=== PATIENT | male | born 1950 | race Caucasian/White ===

== ENCOUNTER 2025-01-06 11:23 | Observation (INO) | payer MEDICARE, BC ==
[2025-01-06 12:17] LABS: Basophils # (A) 0.03 10*3/uL (0.00-0.10); Basophils % (A) 0.5 %; Eosinophils # (A) 0.26 10*3/uL (0.04-0.35); Eosinophils % (A) 4.1 %; HCT 40.8 % (39.6-50.0); HGB 14.8 g/dL (13.0-17.0); Lymphocytes # (A) 1.36 10*3/uL (0.90-5.00); Lymphocytes % (A) 21.3 %; MCHC 36.3 g/dL (32.0-37.0); MCV 88.1 fL (80.0-97.0); Mean Platelet Volume 11.6 fL (9.5-12.2); Monocytes # (A) 0.63 10*3/uL (0.20-1.00); Monocytes % (A) 9.8 %; Neutrophils # (A) 4.09 10*3/uL (1.80-7.70); Neutrophils % (A) 63.8 %; Platelet Count 152 10*3/uL (140-440); RBC 4.63 10*6/uL (4.40-5.60); RDW 12.9 % (11.5-14.5)
[2025-01-06 12:31] LABS: Partial Thromboplastin Time 23.6 sec (22.0-30.0); Prothrombin Time 11.4 sec (10.0-12.5)
[2025-01-06 12:39] LABS: ALT 23 U/L (4-49); AST 24 U/L (17-59); African American GFR (CKD) >90 (>60 ml/min/1.73 sqM); Albumin 4.3 g/dL (3.5-5.0); Alkaline Phosphatase 57 U/L (38-126); Anion Gap 9 mmol/L; Blood Urea Nitrogen 11 mg/dL (9-20); Calcium 9.2 mg/dL (8.4-10.2); Carbon Dioxide 25 mmol/L (22-30); Chloride 107 mmol/L (98-107); Glucose 97 mg/dL (74-99); Magnesium 2.2 mg/dL (1.6-2.3); Non-African American GFR(CKD) 81 (>60 ml/min/1.73 sqM); Potassium 4.2 mmol/L (3.5-5.1); Sodium 141 mmol/L (137-145); Total Bilirubin 1.3 mg/dL (0.2-1.3); Total Protein 6.9 g/dL (6.3-8.2)
[2025-01-06 12:47] LABS: NT-Pro-B-Type Natriuretic Pept 90 pg/mL
--- NOTE | 2025-01-06 13:47 | XR ---
EXAMINATION TYPE: XR chest 2V DATE OF EXAM: 01/06/2025 12:57 PM COMPARISON: None CLINICAL INDICATION: Male, 74 years old with history of Chest Pain; TECHNIQUE: XR chest 2V Frontal and lateral views of the chest. FINDINGS: Lungs/Pleura: There is no evidence of pleural effusion, focal consolidation, or pneumothorax. Pulmonary vascularity: Unremarkable. Heart/mediastinum: Cardiomediastinal silhouette is unremarkable. Musculoskeletal: No acute osseous pathology. Left clavicle fixation hardware appears intact. Other findings: None IMPRESSION: No acute cardiopulmonary disease/process. [facility], , 01/06/2025 1:45 PM
[2025-01-06] MEDS ORDERED: NITROGLYCERIN SL TABS 0.4 MG TAB SUBLINGUAL PRN (14:44)
--- NOTE | 2025-01-06 14:44 | ED ---
Chest Pain HPI - General Chief Complaint: Chest Pain Stated Complaint: chest pain, SOB Time Seen by Provider: 01/06/25 11:40 Source: patient, RN notes reviewed Mode of arrival: ambulatory Limitations: no limitations - History of Present Illness Initial Comments: 74-year-old male presents emergency department complaint of chest pain. Patient states he had an episode on Sunday states he has had some on and off symptoms centralized chest left-sided chest. Patient has a history of hypertension states his blood pressure has been elevated. Patient has no prior cardiac stents denies any headache or dizziness he states pain radiates across his upper abdomen along the diaphragm and upper chest on the left. - Related Data Home Medications Medication Instructions Recorded Confirmed lisinopriL [Zestril] 20 mg PO DAILY 07/17/15 07/17/15 Allergies Allergy/AdvReac Type Severity Reaction Status Date / Time No Known Allergies Allergy Verified 01/06/25 11:30 Review of Systems ROS Statement: Those systems with pertinent positive or pertinent negative responses have been documented in the HPI. ROS Other: All systems not noted in ROS Statement are negative. EKG Findings - EKG Comments: EKG Findings:: EKG performed at 11: 43 sinus bradycardia rate of 59 VT 202 QRS 118 QT/QTc 404/402 - EKG Results: EKG: interpreted by XIN Past Medical History Past Medical History: Hypertension History of Any Multi-Drug Resistant Organisms: None Reported Past Surgical History: No Surgical Hx Reported Past Psychological History: No Psychological Hx Reported Past Alcohol Use History: Occasional Past Drug Use History: None Reported General Exam Limitations: no limitations General appearance: alert, in no apparent distress Head exam: Present: atraumatic, normocephalic, normal inspection Eye exam: Present: normal appearance, PERRL, EOMI. Absent: scleral icterus, conjunctival injection, periorbital swelling ENT exam: Present: normal exam, normal oropharynx, mucous membranes moist Neck exam: Present: normal inspection, full ROM. Absent: tenderness, meningismus, lymphadenopathy Respiratory exam: Present: normal lung sounds bilaterally. Absent: respiratory distress, wheezes, rales, rhonchi, stridor Cardiovascular Exam: Present: regular rate, normal rhythm, normal heart sounds. Absent: systolic murmur, diastolic murmur, rubs, gallop, clicks GI/Abdominal exam: Present: soft, normal bowel sounds. Absent: distended, tenderness, guarding, rebound, rigid Course Vital Signs 01/06/25 01/06/25 01/06/25 11:26 11:44 13:14 Temperature 98.6 F Pulse Rate 64 59 L 59 L Respiratory 18 18 Rate Blood Pressure 149/99 146/85 O2 Sat by Pulse 97 99 Oximetry Chest Pain MDM - MDM Was pt. sent in by a medical professional or institution (, PA, COM[employer] WORKER, urgent care, hospital, or detention...) When possible be specific @ -No Did you speak to anyone other than the patient for history (EMS, parent, family, police, friend...)? What history was obtained from this source @ -No Did you review nursing and triage notes (agree or disagree)? Why? @ -I reviewed and agree with nursing and triage notes Were old charts reviewed (outside hosp., previous admission, EMS record, old EKG, old radiological studies, urgent care reports/EKG's, detention records)? Report findings @ -No old charts were reviewed Differential Diagnosis (chest pain, altered mental status, abdominal pain women, abdominal pain men, vaginal bleeding, weakness, fever, dyspnea, syncope, headache, dizziness, GI bleed, back pain, seizure, CVA, palpatations, mental health, musculoskeletal)? @ -Differential Chest Pain: Stable Angina, Unstable Angina, STEMI, NSTEMI Aortic Dissection, Pneumothorax, Musculoskeletal, Esophageal Spasm GERD, Cholecystitis, Pancreatitis, Zoster, this is not meant to be an all-inclusive list. EKG interpreted by me (3pts min.). @ -As above X-rays interpreted by me (1pt min.). @ -Chest x-ray shows no acute cardiopulmonary process CT interpreted by me (1pt min.). @ -None done U/S interpreted by me (1pt. min.). @ -None done What testing was considered but not performed or refused? (CT, X-rays, U/S, labs)? Why? @ -None What meds were considered but not given or refused? Why? @ -None Did you discuss the management of the patient with other professionals (professionals i.e. , GISELLE, COM[employer] G[employer] WORKER, lab, RT, psych nurse, social psychologist, shop technician, teacher, administrative officer, pillowcase cleaner)? Give summary @ -Dr. ruiz for admission Was smoking cessation discussed for >3mins.? @ -No Was critical care preformed (if so, how long)? @ -No Were there social determinants of health that impacted care today? How? (Homelessness, low income, unemployed, alcoholism, drug addiction, transportation, low edu. Level, literacy, decrease access to med. care, residential, rehab)? @ -No Was there de-escalation of care discussed even if they declined (Discuss DNR or withdrawal of care, Hospice)? DNR status @ -No What co-morbidities impacted this encounter? (DM, HTN, Smoking, COPD, CAD, Cancer, CVA, ARF, Chemo, Hep., AIDS, mental health diagnosis, sleep apnea, morbid obesity)? @ -[Hypertension Was patient admitted / discharged? Hospital course, mention meds given and route, prescriptions, significant lab abnormalities, going to OR and other pertinent info. @ -Admitted patient presented for chest pain, patient does have multiple risk factors. Initial troponin is negative EKG did not show any acute changes patient will be admitted for echocardiogram, cardiology evaluation cardiac rule out. Undiagnosed new problem with uncertain prognosis? @ -No Drug Therapy requiring intensive monitoring for toxicity (Heparin, Nitro, Insulin, Cardizem)? @ -No Were any procedures done? @ -No Diagnosis/symptom? @ -Chest pain Acute, or Chronic, or Acute on Chronic? @ -Acute Uncomplicated (without systemic symptoms) or Complicated (systemic symptoms)? @ -Uncomplicated Side effects of treatment? @ -No Exacerbation, Progression, or Severe Exacerbation? @ -No Poses a threat to life or bodily function? How? (Chest pain, [place], AR, pneumonia, PE, COPD, DKA, ARF, appy, cholecystitis, CVA, Diverticulitis, Homicidal, Suicidal, threat to staff... and all critical care pts) @ -No Disposition Clinical Impression: Chest pain Disposition: ADMITTED IP TO THIS HOSP Condition: Fair Referrals: Brenden Rascon MD [Primary Care Provider] - 1-2 days Time of Disposition: 14:43
[2025-01-06] MEDS: ASPIRIN 81 MG PO STA (15:50)
[2025-01-06] MEDS ORDERED: FLUTICASONE NASAL 50MCG/SPRAY 16GM BTL EA NOSTRIL PRN (19:31)
--- NOTE | 2025-01-06 19:59 | P.HPIM ---
History of Present Illness H&P Date: 01/06/25 Chief Complaint: Chest pain Patient is a 74-year-old male with a known history of hypertension presents to ER with complaints of chest pain. Patient states that since Sunday he has been having on and off left-sided chest pain below the left sternal border, associate with shortness of breath and anxiety and also pain radiating along the upper border and to the left upper chest. 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 Previously was able to find jobs without shortness of breath. Recently he has been feeling very tired and he has been feeling very tired after 4 laps and was also having difficulty in breathing. Denied any recent illnesses. No cough or sputum production. No fever no chest pain no leg swelling. No headache or dizziness or lightheadedness. Patient states that he has family history of aortic aneurysm in his father. P atient states that he has significant secondhand smoking history and smokes about 1 pack/month. Admission blood pressure 140/98 pulse 62 respiration 18 pulse ox 97% on room air. Chest x-ray showed no acute cardiopulmonary process. EKG showed sinus bradycardia with 59 heart rate. Laboratory data reviewed. D-dimer 0.51 Review of Systems Constitutional: Patient denies any fever or chills . No generalized weakness or weight loss. Abdomen: Patient denied nausea vomiting and diarrhea and abdominal pain. Cardiovascular: Patient does have on and off left-sided chest pain and shortness of breath. No leg swelling. Respiratory: patient denied any cough or sputum production. No shortness of breath Neurologic: Patient denied any numbness or tingling. no headache. Musculoskeletal: Patient denies any complaints of joint swelling or deformity. Skin: Negative Psychiatric: Negative Endocrine: No heat or cold intolerance. No recent weight gain. Genitourinary: No dysuria or hematuria. All other 14 point ROS negative except the above Past Medical History Past Medical History: Hypertension History of Any Multi-Drug Resistant Organisms: None Reported Past Surgical History: No Surgical Hx Reported Additional Past Surgical History / Comment(s): shoulder repair, elbow repair. Past Psychological History: No Psychological Hx Reported Smoking Status: Current some day smoker Past Alcohol Use History: Occasional Past Drug Use History: None Reported Medications and Allergies Home Medications Medication Instructions Recorded Confirmed Type lisinopriL [Zestril] 20 mg PO DAILY 07/17/15 01/06/25 History Cetirizine HCl [Zyrtec] 10 mg PO DAILY 01/06/25 01/06/25 History Cholecalciferol (Vitamin D3) 50 mcg PO DAILY 01/06/25 01/06/25 History [Vitamin D3 (50 Mcg = 2000 Iu)] Fluticasone Nasal [place] [Flonase 2 spray EA NOSTRIL BID PRN 01/06/25 01/06/25 History Nasal [place]] Magnesium Oxide [Mag-Ox] 250 mg PO DAILY 01/06/25 01/06/25 History Allergies Allergy/AdvReac Type Severity Reaction Status Date / Time No Known Allergies Allergy Verified 01/06/25 15:16 Physical Exam Vitals: Vital Signs Temp Pulse Pulse Resp BP BP Pulse Ox 01/06/25 18:47 97.6 F 71 16 160/87 99 01/06/25 16:19 68 16 153/95 97 01/06/25 13:14 59 L 18 146/85 99 01/06/25 11:44 59 L 01/06/25 11:26 98.6 F 64 18 149/99 97 Intake and Output 01/06/25 01/06/25 01/06/25 06:59 14:59 22:59 Intake Total 240 Balance 240 Intake: Oral 240 Other: Weight 102.058 kg 102.058 kg PHYSICAL EXAMINATION: Patient is lying in the bed comfortably, no acute distress, awake alert and oriented.. HEENT: Normocephalic. Neck is supple. Pupils reactive. Nostrils clear. Oral cavity is moist. Neck reveals no JVD, carotid bruits, or thyromegaly. CHEST EXAMINATION: Trachea is central. Symmetrical expansion. Lung gaviria clear to auscultation and percussion. CARDIAC: Normal S1, S2 with no gallops. No murmurs ABDOMEN: Soft. Bowel sounds normal. No organomegaly. No abdominal bruits. Extremities: reveal no edema. No clubbing or cyanosis Neurologically awake, alert, oriented x3 with well-coordinated movements. No focal deficits noted Skin: No rash or skin lesions. Psychiatric: Coperative. Nonsuicidal Musculoskeletal: No joint swelling or deformity. Normal range of motion. Results CBC & Chem 7: 01/06/25 11:56 01/06/25 11:56 Thrombosis Risk Factor Assmnt - DVT/VTE Prophylaxis DVT/VTE Prophylaxis: Pharmacologic Prophylaxis ordered Assessment and Plan Assessment: Chest pain and exertional dyspnea. Rule out ACS. Hypertension uncontrolled Family history of aortic aneurysm Daily light smoker DVT prophylax with heparin subcu Plan: Patient will be continued on telemonitoring. Serial EKG and troponin x 3. Cardiology was consulted for evaluation. 2D echocardiogram and lipid panel was ordered. Started back on home blood pressure medication, lisinopril 20 mg daily. Continue to follow closely.
[2025-01-06] MEDS: lisinopriL 20 MG TAB PO SCH (20:47)
[2025-01-06] MEDS: HEPARIN SODIUM,PORCINE 5,000 UNIT/ML 1 ML VIAL SQ SCH (20:57)
--- NOTE | 2025-01-07 07:27 | CA ---
Transthoracic Echo Report Name: Navid Ta Age: 74 Gender: M : 1950 Exam Date: 01/06/2025 15:25 Exam Location: [facility] Ht (in): 74 Wt (lb): 225 Ordering Physician: Jeremiah Pérez Attending/Referring Phys: [id number], Beto [employer] System Installer Helper Sabiha Camarillo RDCS Procedure CPT: Indications: Chest Pain Cardiac Hx: Technical Quality: Technically difficult study Contrast 1: Definity Total Dose (mL): 5 Contrast 2: Total Dose (mL): MEASUREMENTS (Male / Female) Normal Values 2D ECHO LV Diastolic Diameter PLAX 6.4 cm 4.2 - 5.9 / 3.9 - 5.3 cm LV Systolic Diameter PLAX 4.4 cm IVS Diastolic Thickness 1.0 cm 0.6 - 1.0 / 0.6 - 0.9 cm LVPW Diastolic Thickness 0.9 cm 0.6 - 1.0 / 0.6 - 0.9 cm LV Relative Wall Thickness 0.3 LVOT Diameter 2.3 cm LV Diastolic Volume MOD BP 126.4 cm??? 67 - 155 / 56 - 104 cm??? LV Systolic Volume MOD BP 57.4 cm??? 22 - 58 / 19 - 49 cm??? LV Ejection Fraction MOD BP 54.6 % >= 55 % LV Cardiac Index MOD BP 1751.2 cm???/min???m??? LV Diastolic Volume MOD 4C 133.8 cm??? LV Systolic Volume MOD 4C 59.3 cm??? LV Ejection Fraction MOD 4C 55.7 % LV Cardiac Index MOD 4C 1890.3 cm???/min???m??? LV Diastolic Length 4C 8.3 cm LV Systolic Length 4C 6.7 cm LV Diastolic Volume MOD 2C 119.3 cm??? LV Systolic Volume MOD 2C 54.9 cm??? LV Ejection Fraction MOD 2C 54.0 % LV Cardiac Index MOD 2C 1632.3 cm???/min???m??? LV Diastolic Length 2C 8.4 cm LV Systolic Length 2C 6.8 cm LA Volume 71.3 cm??? 18 - 58 / 22 - 52 cm??? LA Volume Index 30.7 cm???/m??? 16 - 28 cm???/m??? Ascending Aorta Diameter 3.8 cm DOPPLER AV Peak Velocity 138.5 cm/s AV Peak Gradient 7.7 mmHg AV Mean Velocity 98.8 cm/s AV Mean Gradient 4.3 mmHg AV Velocity Time Integral 31.5 cm LVOT Peak Velocity 100.9 cm/s LVOT Peak Gradient 4.1 mmHg LVOT Velocity Time Integral 21.5 cm LVOT Stroke Volume 87.1 cm??? LVOT Stroke Volume Index 38.1 ml/m??? LVOT Cardiac Index 2207.6 cm???/min???m??? AV Area Cont Eq vti 2.8 cm??? AV Area Cont Eq pk 3.0 cm??? MV Area PHT 2.5 cm??? Mitral E Point Velocity 42.3 cm/s Mitral A Point Velocity 49.5 cm/s Mitral E to A Ratio 0.9 MV Deceleration Time 305.9 ms TR Peak Velocity 272.6 cm/s TR Peak Gradient 29.7 mmHg Right Atrial Pressure 10.0 mmHg Pulmonary Artery Systolic Pressu 39.7 mmHg Right Ventricular Systolic Press 39.7 mmHg PV Peak Velocity 118.7 cm/s PV Peak Gradient 5.6 mmHg FINDINGS Left Ventricle Left ventricular wall thickness normal. Left ventricular ejection fraction is estimated at 55-60 %. Normal left ventricular systolic function with no obvious regional wall motion abnormalities. Mildly dilated left ventricle Right Ventricle Normal right ventricular size and function. Mild pulmonary hypertension. Right Atrium Mild right atrial dilatation. Left Atrium Mildly increased left atrial volume. Mitral Valve Structurally normal mitral valve. No evidence for mitral valve prolapse. No mitral stenosis. Mild mitral regurgitation. Aortic Valve Trileaflet aortic valve. No aortic stenosis. Mild aortic regurgitation. Tricuspid Valve Structurally normal tricuspid valve. No tricuspid stenosis. Mild tricuspid regurgitation. Pulmonic Valve Structurally normal pulmonic valve. No pulmonic stenosis. Mild pulmonic regurgitation. Pericardium No pericardial effusion. Aorta Mildly dilated aortic annulus. Normal ascending aorta. CONCLUSIONS Technically difficult study. Definity ECHO contrast used for improved visualization of the endocardial borders (inadequate visualization of two or more contiguous segments). Normal left ventricular systolic function with mildly dilated left ventricle Mild mitral, aortic and tricuspid regurgitation Mild pulmonary hypertension Previewed by: Dr. Calvin Montanez MD (Electronically Signed) Final Date: 07 January 2025 07:26
[2025-01-07 08:13] LABS: Chol/HDL Ratio 3.29 Ratio; LDL Cholesterol,Calculated 97.2 mg/dL (0.0-131.0); VLDL Calculation 18.36 mg/dL (5.00-40.00)
[2025-01-07] MEDS ORDERED: ALPRAZolam 0.25 MG TAB PO PRN (08:14)
[2025-01-07] MEDS ORDERED: NITROGLYCERIN SL TABS 0.4 MG TAB SUBLINGUAL PRN ×2 (08:14→10:47)
[2025-01-07] MEDS ORDERED: ALPRAZolam 0.5 MG TAB PO PRN (08:14)
[2025-01-07] MEDS: ASPIRIN 81 MG PO SCH (08:30)
[2025-01-07] MEDS: ASPIRIN 325 MG TAB PO STA (09:00)
[2025-01-07] MEDS: ATORVASTATIN 80 MG TAB PO STA (09:00)
[2025-01-07] MEDS ORDERED: ASPIRIN 325 MG TAB PO SCH (09:00)
[2025-01-07] MEDS: SODIUM CHLORIDE 0.9% 1,000 ML in EMPTY BAG 1 BAG IV SCH ×2 (09:02→12:02)
[2025-01-07] MEDS: IV FLUID CONTINUATION 1,000 ML IV ONE (09:28)
[2025-01-07] MEDS: HEPARIN SODIUM,PORCINE 10,000 UNIT in SODIUM CHLORIDE 0.9% 1,000 ML IRRIGATION PRN (09:29)
[2025-01-07] MEDS: HEPARIN SODIUM,PORCINE (1 ML) 2,500 UNIT in SODIUM CHLORIDE 0.9% 250 ML IRRIGATION PRN (09:30)
[2025-01-07] MEDS: fentaNYL (PF) 50 MCG/ML 2 ML AMP IVP ONE (09:50)
[2025-01-07] MEDS: LIDOCAINE 1% INJ 10MG/ML (20 ML MDV) SQ ONE (09:53)
[2025-01-07] MEDS: VERAPAMIL SYRINGE (5 MG/10 ML) INTRAARTER ONE (09:55)
[2025-01-07] MEDS: HEPARIN SODIUM 1,000 UN/ML (10ML VL) IV ONE ×2 (10:00→10:15)
[2025-01-07] MEDS: NITROGLYCERIN 1000MCG/10ML SYRINGE INTRACORON ONE (10:13)
[2025-01-07] MEDS: CLOPIDOGREL 75 MG TAB PO ONE (10:19)
--- NOTE | 2025-01-07 10:21 | P.CRDCN ---
History of Present Illness History of present illness: HISTORY OF PRESENT ILLNESS: This is a 74-year-old male with a past medical history significant for hypertension and allergies. Patient does not follow with a news librarian. We have been asked to see the patient in consultation for chest pain. Patient examined at the bedside. Patient states that he is usually active on a normal basis. He states that he went swimming at the [facility] on Sunday. He states that he usually does 36 laps. He reports on this occasion he was only able to do 4 laps and then had to stop because he was so short of breath. Reports since that time he has been having chest pain on and off. He states the pain is not exertionally related. He also reports having palpitations at home. He states that he has not gone swimming since that episode on Sunday. He reports that he checks his blood pressure at home and it was elevated with a systolic of 190 which is not normal for him. He is a non-smoker. He does report having 1 to 2 glasses of wine a night with dinner. DIAGNOSTICS: - EKG reveals sinus mechanism with no signs of acute ischemia. - Chest xray negative for acute process. - Laboratory data: WBC 6.40. Hemoglobin 14.8. Platelet count 152. D-dimer 0.51. Sodium 141. Potassium 4.2. BUN 11. Creatinine 0.93. Troponin negative x 3 - Current home cardiac medications include lisinopril 20 mg daily. - Most recent echocardiogram performed this admission reveals ejection fraction 55 to 60%, mild MR, mild AI, mild TR - Cardiac catheterization history: Patient denies REVIEW OF SYSTEMS: At the time of my exam: CONSTITUTIONAL: Denies fever or chills. HEENT: Denies blurred vision, vision changes, or eye pain. Denies hemoptysis CARDIOVASCULAR: Denies chest pain. Denies orthopnea. Denies PND. Denies palpitations RESPIRATORY: Denies shortness of breath. GASTROINTESTINAL: Denies abdominal pain. Denies nausea or vomiting. HEMATOLOGIC: Denies bleeding disorders. GENITOURINARY: Denies any blood in urine. SKIN: Denies pruitis. Denies rash. PHYSICAL EXAM: VITAL SIGNS: Reviewed. GENERAL: Well-developed in no acute distress. HEENT: Head is normocephalic. Pupils are equal, round. Sclerae anicteric. Mucous membranes of the mouth are moist. Neck supple. No JVD or thyromegaly LUNGS: Respirations even and unlabored. Lungs essentially clear to auscultation bilaterally. HEART: Regular rate and rhythm. S1 and S2 heard. ABDOMEN: Soft. Nondistended. Nontender. EXTREMITIES: Normal range of motion. No clubbing or cyanosis. Peripheral pulse s intact. No lower extremity edema NEUROLOGIC: Awake and alert. Oriented x 3. ASSESSMENT: Chest pain Hypertension History of allergies Daily alcohol use, patient reports 1 to 2 glasses of wine at night PLAN: An acute coronary event has been ruled out Decrease aspirin to 81 mg daily Check lipid panel 2D echo obtained and reviewed Recommend cardiac catheterization. Patient is agreeable. Patient will undergo cardiac catheterization today with Dr. Montanez Further recommendations pending patient course Nurse practitioner note has been reviewed by physician. Signing provider agrees with the documented findings, assessment, and plan of care documented by STEAM TABLE WORKER as a scribe. Past Medical History Past Medical History: Hypertension History of Any Multi-Drug Resistant Organisms: None Reported Past Surgical History: No Surgical Hx Reported Additional Past Surgical History / Comment(s): shoulder repair, elbow repair. Past Psychological History: No Psychological Hx Reported Smoking Status: Current some day smoker Past Alcohol Use History: Occasional Past Drug Use History: None Reported Medications and Allergies Home Medications Medication Instructions Recorded Confirmed Type lisinopriL [Zestril] 20 mg PO DAILY 07/17/15 01/06/25 History Cetirizine HCl [Zyrtec] 10 mg PO DAILY 01/06/25 01/06/25 History Cholecalciferol (Vitamin D3) 50 mcg PO DAILY 01/06/25 01/06/25 History [Vitamin D3 (50 Mcg = 2000 Iu)] Fluticasone Nasal [place] [Flonase 2 spray EA NOSTRIL BID PRN 01/06/25 01/06/25 History Nasal [place]] Magnesium Oxide [Mag-Ox] 250 mg PO DAILY 01/06/25 01/06/25 History Allergies Allergy/AdvReac Type Severity Reaction Status Date / Time No Known Allergies Allergy Verified 01/06/25 15:16 Physical Exam Vitals: Vital Signs Temp Pulse Pulse Resp BP BP BP 01/07/25 07:00 97.6 F 59 L 16 142/92 01/07/25 00:10 98.3 F 52 L 16 143/88 01/06/25 18:47 97.6 F 71 16 160/87 01/06/25 16:19 68 16 153/95 01/06/25 13:14 59 L 18 146/85 01/06/25 11:44 59 L 01/06/25 11:26 98.6 F 64 18 149/99 Pulse Ox 01/07/25 07:00 97 01/07/25 00:10 98 01/06/25 18:47 99 01/06/25 16:19 97 01/06/25 13:14 99 01/06/25 11:44 01/06/25 11:26 97 Intake and Output 01/06/25 01/07/25 01/07/25 22:59 06:59 14:59 Intake Total 240 Balance 240 Intake: Oral 240 Other: # Voids 1 1 Weight 102.058 kg Results 01/06/25 11:56 01/06/25 11:56 Cardiac Enzymes 01/06/25 01/06/25 01/06/25 Range/Units 11:56 11:56 15:24 AST 24 (17-59) U/L Troponin I <0.012 <0.012 (0.000-0.034) ng/mL 01/06/25 Range/Units 18:47 AST (17-59) U/L Troponin I <0.012 (0.000-0.034) ng/mL Coagulation 01/06/25 Range/Units 11:56 PT 11.4 (10.0-12.5) sec APTT 23.6 (22.0-30.0) sec CBC 01/06/25 Range/Units 11:56 WBC 6.40 (4.50-10.00) 10*3/uL RBC 4.63 (4.40-5.60) 10*6/uL Hgb 14.8 (13.0-17.0) g/dL Hct 40.8 (39.6-50.0) % Plt Count 152 (140-440) 10*3/uL Comprehensive Metabolic Panel 01/06/25 Range/Units 11:56 Sodium 141 (137-145) mmol/L Potassium 4.2 (3.5-5.1) mmol/L Chloride 107 (98-107) mmol/L Carbon Dioxide 25 (22-30) mmol/L BUN 11 (9-20) mg/dL Creatinine 0.93 (0.66-1.25) mg/dL Glucose 97 (74-99) mg/dL Calcium 9.2 (8.4-10.2) mg/dL AST 24 (17-59) U/L ALT 23 (4-49) U/L Alkaline Phosphatase 57 (38-126) U/L Total Protein 6.9 (6.3-8.2) g/dL Albumin 4.3 (3.5-5.0) g/dL Current Medications Generic Name Dose Route Start Last Admin Trade Name Freq PRN Reason Stop Dose Admin Aspirin 325 mg 01/07/25 09:00 Aspirin 325 Mg Tab PO DAILY HANNY Fluticasone Propionate 2 spray 01/06/25 19:31 Fluticasone Nasal 50mcg/[place] 16gm Btl EA NOSTRIL BID PRN Allergy Symptoms Heparin Sodium (Porcine) 5,000 unit 01/07/25 00:00 01/06/25 20:57 Heparin Sodium,Porcine 5,000 Unit/Ml 1 Ml Vial SQ 5,000 unit Q8HR HANNY Administration Lisinopril 20 mg 01/06/25 19:45 01/06/25 20:47 Lisinopril 20 Mg Tab PO 20 mg DAILY HANNY Administration Nitroglycerin 0.4 mg 01/06/25 14:44 Nitroglycerin Sl Tabs 0.4 Mg Tab SUBLINGUAL Q5M PRN Chest Pain Intake and Output 01/06/25 01/07/25 01/07/25 22:59 06:59 14:59 Intake Total 240 Balance 240 Intake: Oral 240 Other: # Voids 1 1 Weight 102.058 kg 01/06/25 11:56 01/06/25 11:56
[2025-01-07] MEDS: IOPAMIDOL-370 100ML BTL INJ ONE ×2 (10:23→10:37)
[2025-01-07] MEDS ORDERED: RX INFO: IV CONTRAST WAS GIVEN 1 EACH MISC MISCELLANE PRN (10:47)
[2025-01-07] MEDS ORDERED: MAG HYDROX/AL HYDROX/SIMETH 30 ML CUP PO PRN (10:47)
[2025-01-07] MEDS ORDERED: ZOLPIDEM 5 MG TAB PO PRN (10:47)
[2025-01-07] MEDS ORDERED: ATROPINE SULFATE 0.1 MG/ML 10ML SYRINGE IV PRN (10:47)
--- NOTE | 2025-01-07 10:56 | P.CARDCATH ---
Date of Procedure: 01/07/25 Description of Procedure: Cardiac Catheterization: The patient is a 74-year-old male with history of hypertension who presented with new onset exertional chest discomfort and dyspnea. He had no evidence of EKG changes or troponin abnormalities. Recommendations were made regarding cardiac catheterization, the risks and the complications were discussed with the patient who is in full understanding and agreement. Procedure Description: Patient was brought to lab rep in fasting semi-sedated state after receiving Fentanyl and Benadryl achieiving moderate conscious sedated state. Using Xylocaine Anesthesia and modified Seldinger technique, a 6-Y[place]i sheath was introduced in the right radial artery . Subsequently, selective coronary angiography was performed using a 5-Yemeni 3.5 bend Johnson catheter. Multiple views of the coronary artery including hemiaxial views were obtained. The 5 [place]i pigtail catheter was used to cross the aortic valve and LVEDP was calculated. PCI: After removing the catheters a 6 [place]i CLS 3.5 guiding catheter was introduced into the system and after connecting the left main and Omni Doppler flow wire was advanced and positioned in the distal LAD. iFR was measured at 0.88. At that point a [employer] IVUS catheter was introduced and images were obtained and revealed a noncalcified lesion with a distal lumen of 4.0 to 4.2 mm in diameter. After removing the catheter a 4.0 x 18 mm Xience Skypoint stent was advanced and deployed at 14 luz. After removing the balloon repeat IVUS imaging was done and revealed good apposition of the stent with a minimal luminal area of 10.1 mm. At that point a 4.0 x 15 mm NC trek balloon was advanced and 1 inflation at 10 luz was done in the stent. After removing the balloon and the wire images were obtained and revealed stable successful stenting. Following that, catheter and sheath were removed. Hemostasis was obtained with deployment of vascular band . There was no immediate complication. Patient was returned to room in stable condition. Of note, the patient received a total of 8500 units of intravenous heparin as well as intra-arterial verapamil. He received an oral loading dose of clopidogrel. His ACT was monitored. He had no significant EKG changes or chest discomfort with the inflations. Findings: Left main: This is a large size vessel, bifurcating into LAD and left circumflex, left main has no obstructive disease LAD: This is a large vessel giving rise to small diagonal branch proximally in the midsegment there is a moderately sized diagonal branch. The mid LAD has in its strength 60 to 70% eccentric lesion, the rest of the vessel has no high- grade stenosis Left circumflex: This is a large nondominant vessel giving rise to 2 large obtuse marginal branch and distally giving rise to a small diagonal branch. The left circumflex and its branches have no obstructive disease RCA: This is a large dominant vessel giving rise to right PDA and a small PLV. The right coronary artery has no evidence of significant obstructive disease Left Ventriculogram: Not performed Hemodynamics: There was no gradient across the aortic valve, LVEDP was 14-16 mmHg Conclusion: 1. Mid LAD lesion with abnormal IFR 2. No obstructive disease in the RCA and left circumflex 3. Right dominance 4. Successful stenting of the mid LAD with reduction stenosis from 70% to 0% with IVUS imaging and ALLIE-3 flow Recommendations: The patient will continue on aspirin and clopidogrel without any interruption fo r 6 months in addition to aggressive coronary risks modifications, maintaining LDL to less than 70 mg/dL. The findings and the recommendations were discussed with the patient and he was in full understanding and agreement. Duration of sedation is 43 minutes.
[2025-01-07 14:12] VITALS: BMI 28.8
[2025-01-07 15:30] VITALS: BP 128/83; PULSE 72; RESP 16; TEMP 98.5
--- NOTE | 2025-01-07 20:17 | P.DS ---
Providers Date of admission: 01/06/25 14:40 Attending physician: Etelvina Healy Consults: 01/06/25 14:44 Consult Physician Urgent Consulting Provider: Juan Jose Jacobson Consult Reason/Comments: chest pain Do you want consulting provider notified?: Yes 01/07/25 10:47 Consult Physician Routine Consulting Provider: Karen Sanders Consult Reason/Comments: Post Interventional patient Do you want consulting provider notified?: Already Contacted Primary care physician: Brenden Rascon Hospital Course: Hospital course: Patient is a 74-year-old male with a known history of hypertension presents to ER with complaints of chest pain. Patient states that since Sunday he has been having on and off left-sided chest pain below the left sternal border, associate with shortness of breath and anxiety and also pain radiating along the upper border and to the left upper chest. Patient had negative D-dimer. Negative troponin x 3. Patient evaluated by emt driver he underwent cardiac cath status post PCI to LAD. Today patient feels well. His chest pain significantly improved. No dyspnea. No other new symptom. Patient is aware of his diagnosis and management plan. I informed him about his dual antiplatelet therapy with aspirin and Plavix and risk and benefit explained for him in details. He verbalized understanding and acceptance. Patient will be discharged once cleared by cardiology today. Problems and management plan were discussed with the patient and he verbalized understanding and acceptance Patient was found stable and can be discharged home in guarded prognosis however he needs follow-up as an outpatient. Patient was instructed to follow up with PCP Dr. Rascon within one week and patient agrees Patient was instructed to follow-up with his emt driver Dr. Montanez in 1 weeks and he agrees Cardiac medication were sent to the pharmacy by cardiology team Physical exam Gen: patient is a AAOx3, no distress CVS: S1-S2, RRR, no murmur Lungs: B/L CTA, no wheezing Abdomen: soft, no distention, no tenderness, positive bowel sounds Extremity: no leg edema or induration Time spent more than 35 minutes Patient Condition at Discharge: Fair Plan - Discharge Summary New Discharge Prescriptions: New Atorvastatin [Lipitor] 40 mg PO DAILY #90 tab Aspirin 81 mg PO DAILY #90 tab hydroCHLOROthiazide [Hydrodiuril] 25 mg PO DAILY #90 tab Nitroglycerin Sl Tabs [Nitrostat] 0.4 mg SUBLINGUAL Q5M PRN #100 tab PRN Reason: Chest Pain Clopidogrel [Plavix] 75 mg PO DAILY #90 tab Continue lisinopriL [Zestril] 20 mg PO DAILY Cholecalciferol (Vitamin D3) [Vitamin D3 (50 Mcg = 2000 Iu)] 50 mcg PO DAILY Cetirizine HCl [Zyrtec] 10 mg PO DAILY Magnesium Oxide [Mag-Ox] 250 mg PO DAILY Fluticasone Nasal [place] [Flonase Nasal [place]] 2 spray EA NOSTRIL BID PRN PRN Reason: Allergy Symptoms Discharge Medication List lisinopriL [Zestril] 20 mg PO DAILY 07/17/15 [History] Cetirizine HCl [Zyrtec] 10 mg PO DAILY 01/06/25 [History] Cholecalciferol (Vitamin D3) [Vitamin D3 (50 Mcg = 2000 Iu)] 50 mcg PO DAILY 01/06/25 [History] Fluticasone Nasal [place] [Flonase Nasal [place]] 2 spray EA NOSTRIL BID PRN 01/06/25 [History] Magnesium Oxide [Mag-Ox] 250 mg PO DAILY 01/06/25 [History] Aspirin 81 mg PO DAILY #90 tab 01/07/25 [Rx] Atorvastatin [Lipitor] 40 mg PO DAILY #90 tab 01/07/25 [Rx] Clopidogrel [Plavix] 75 mg PO DAILY #90 tab 01/07/25 [Rx] Nitroglycerin Sl Tabs [Nitrostat] 0.4 mg SUBLINGUAL Q5M PRN #100 tab 01/07/25 [Rx] hydroCHLOROthiazide [Hydrodiuril] 25 mg PO DAILY #90 tab 01/07/25 [Rx] Follow up Appointment(s)/Referral(s): Calvin Montanez MD [STAFF PHYSICIAN] - 1 Week (Office will call with appointment date and time.) Brenden Rascon MD [Primary Care Provider] - 1-2 days Patient Instructions/Handouts: Heart Catheterization (DC) Activity/Diet/Wound Care/Special Instructions: Heart healthy diet Activity is restricted till you see your doctor Recommend to continue with aspirin and Plavix dual antiplatelet therapy for at least 6 months and follow-up with your emt driver for further recommendation Discharge/Stand Alone Forms: Outpatient Counseling Discharge Disposition: HOME WITH HOME HEALTH SERVICES
[2025-01-08] MEDS ORDERED: ATORVASTATIN 40 MG TAB PO SCH (09:00)
[2025-01-08] MEDS ORDERED: CLOPIDOGREL 75 MG TAB PO SCH (09:00)
[2025-01-08] MEDS ORDERED: hydroCHLOROthiazide 25 MG TAB PO SCH (09:00)
== END 2025-01-07 15:45 | disposition home health service (06) ==
LOC: EC 11:23 → 6NMEDSUR 14:40
PROVIDERS: ADMIT Internal Medicine; ATTEND Internal Medicine
DX: I25.10 Atherosclerotic heart disease of native coronary artery without angina pectoris (principal); I10 Essential (primary) hypertension; I08.3 Combined rheumatic disorders of mitral, aortic and tricuspid valves; R00.1 Bradycardia, unspecified; F10.90 Alcohol use, unspecified, uncomplicated; F17.210 Nicotine dependence, cigarettes, uncomplicated; Z79.899 Other long term (current) drug therapy; Z82.49 Family history of ischemic heart disease and other diseases of the circulatory system
CPT/HCPCS: 96372; 99285; 36415; 93005; 92978; 93458; 93799; 85379; 83880; 80061; 80053; 83735; 84484; 85025; 85610; 85730; 71046; G0378 ×2; C8929; C9600; C1887; C1894; C1753; C1769 ×2; C1725; J1644 ×4; J2003; J3010; Q9957; Q9967; J2305; 93306